=== PATIENT | male | born 1955 | race Caucasian/White ===

== ENCOUNTER 2018-03-11 08:53 | Day surgery (SDC) | payer OTHER ==
[2018-03-11] MEDS ORDERED: GLUCAGON 1 MG/VIAL IV ONE (08:54)
[2018-03-11] MEDS ORDERED: PROPOFOL 10 MG/ML VIAL IV ONE (08:54)
--- NOTE | 2018-03-11 15:20 | Operative Note ---
DATE OF SURGERY: 03/11/2018 OPERATION: COLONOSCOPY to the cecum with cold biopsy forceps polypectomy x2 and cold snare polypectomy x3. INDICATION: Colorectal cancer screening. ANESTHESIA: Intravenous sedation was administered by the department of anesthesiology and included Diprivan titrated to effect. PROCEDURE: Following informed consent from this alert individual including a discussion of the risks and benefits of the procedure and an opportunity for the patient to ask questions, the patient was in the left lateral decubitus position. A digital rectal examination was performed. No abnormalities were noted. Following this, the Olympus [id number] video colonoscope was inserted into the rectum without resistance. The rectal mucosa had a normal appearance with normal folds and distensibility. The colonoscope was advanced up through the colon to the level of the cecum without much difficulty. Throughout the bowel the mucosa appeared normal, the folds were normal, and the bowel was fairly well distensible. The colon preparation was good. The cecum was defined by noting the appendiceal orifice and ileocecal valve. In the cecum there were 2 polyps noted measuring 3 and 4 mm each. The larger polyp was removed with cold snare polypectomy and suctioned through the colonoscope into a collection trap. The smaller polyp was removed with biopsy forceps. The ascending colon was unremarkable. Within the transverse colon, there were 3 polyps noted, 2 measuring 4-5 mm in size and removed with cold snare polypectomy and 1 small 3 mm polyp was removed with biopsy forceps. No other changes were noted upon further withdrawal of the colonoscopy to the rectum. Retroflexion in the rectum was endoscopically unremarkable. The endoscope was straightened and withdrawn. The patient tolerated the procedure well and was returned to the recovery area in stable condition. IMPRESSION: A total of 5 polyp noted with 2 in the cecum and 3 in the transverse colon removed as described above. The largest polyp was 4-5 mm in size. RECOMMENDATIONS: Further recommendations will be forthcoming pending results of pathology obtained today. Followup will also be with Rafiq Bautista DO. As always, thank you for allowing me to participate in the care of your patient. CC: DO OSKAR Yost
== END 2018-03-11 10:45 | disposition home or self-care (01) ==
LOC: HOP 08:53
PROVIDERS: ATTEND Internal Medicine Gastroenterology
DX: Z12.11 Encounter for screening for malignant neoplasm of colon (principal); D12.0 Benign neoplasm of cecum; D12.3 Benign neoplasm of transverse colon; E11.9 Type 2 diabetes mellitus without complications; I10 Essential (primary) hypertension; J45.909 Unspecified asthma, uncomplicated
CPT/HCPCS: 45380; 45385; 00811; J1610

== ENCOUNTER 2018-05-27 07:11 | Day surgery (SDC) | payer OTHER ==
[~2018-05-27 07:11] MED LIST: ACETAMINOPHEN 1,000 MG/100 ML BTL IV ONE; CEFAZOLIN 2 Gram 2 GM/50 ML BAG IVPB ONE
[2018-05-27] MEDS ORDERED: LIDOCAINE 2% MDV (20MG/ML) 20ML VIAL IV ONE (07:12)
[2018-05-27] MEDS ORDERED: BUPIVACAINE 0.25% W/EPI MPF 30ML VIAL IVP ONE (07:12)
[2018-05-27] MEDS ORDERED: PROPOFOL 10 MG/ML VIAL IV ONE (07:12)
[2018-05-27] MEDS ORDERED: MIDAZOLAM HCL 2MG/2ML VIAL IV ONE (07:12)
[2018-05-27] MEDS ORDERED: FENTANYL PF 100MCG/2ML VIAL IV ONE (07:12)
[2018-05-27] MEDS ORDERED: DESFLURANE 240 ML BTL INH ONE (07:12)
[2018-05-27] MEDS ORDERED: ONDANSETRON HCL IV 4 MG/2 ML VIAL IVP ONE (07:12)
[2018-05-27 07:38] LABS: BASO % 0.8 % (0-6); EOS % 9.4 % (0-6); GRAN % 50.1 % (47-80); HEMATOCRIT 45.5 % (42.0-52.0); LYMPH % 29.4 % (16-45); MEAN CELL VOLUME 97.2 fl (81-97); MEAN CORPUSCULAR HEMOGLOBIN 32.1 pg (27-33); MEAN PLATELET VOLUME 10.3 fl (7.4-10.4); MONO % 10.3 % (0-9); PLATELET COUNT 233 K/uL (130-400); RED BLOOD COUNT 4.68 M/uL (4.40-5.70); RED CELL DISTRIBUTION WIDTH 13.4 % (11.5-14.5); WHITE BLOOD COUNT W/O DIFF 7.6 K/uL (4.2-12.2)
[2018-05-27 07:53] LABS: BLOOD UREA NITROGEN 22 mg/dL (8-23); CREATININE 1.1 mg/dL (0.7-1.2); EST GLOMERULAR FILTRATION RATE > 60 mL/min; GLUCOSE,RANDOM 122 mg/dL (74-109)
--- NOTE | 2018-05-28 10:40 | Operative Note ---
DATE OF SURGERY: 05/27/2018 Surgeon: Ciro Sahni DO PREOPERATIVE DIAGNOSIS: Recurrent incarcerated umbilical hernia. POSTOPERATIVE DIAGNOSIS: Recurrent incarcerated umbilical hernia. OPERATION: Open umbilical herniorrhaphy. Indication: The patient is a 62-year-old male who presented to the clinic with pain and bulging in his periumbilical region. He had undergone a prior open repair about 15 years ago. He said it recurred after his laparoscopic appendectomy. He did have a [id number] size incarcerated umbilical hernia. The risks, benefits, and alternatives were discussed. Risks include bleeding, infection, acute or chronic pain, recurrence. He understood this fully. Thereafter, consent was signed and questions answered. PROCEDURE: The patient was taken to the operating room and placed in a supine position. General anesthesia was administered per the department of anesthesia. The patient's abdomen was prepped and draped in the usual fashion. The periumbilical region was anesthetized with a total of 10 mL of 0.25% Sensorcaine with epinephrine. A 3 cm curvilinear incision was made. This was carried down to the anterior rectus fascia. Copious amounts of scarring were encountered from his prior repair. The umbilical skin was dissected free from underlying hernia sac and lifted in a cephalad direction. The patient had incarcerated omentum through a small probably 5 mm hernia. This was surrounded by copious amounts of scarring noted. The hernia sac was then amputated and passed off the field. The hernia was closed primarily with 0 Ethibond in 3 interrupted sutures. The skin was tacked down to the fascia with 3-0 Vicryl. The skin was closed with 3-0 and 4-0 Vicryl. He was taken to the recovery room in satisfactory condition. FINDINGS AT THE TIME OF SURGERY: Recurrent incarcerated umbilical hernia, repaired as above. CC: DO OSKAR Yost
== END 2018-05-27 09:55 | disposition home or self-care (01) ==
LOC: SUR 07:11
PROVIDERS: ATTEND Surgery
DX: K42.0 Umbilical hernia with obstruction, without gangrene (principal); J45.909 Unspecified asthma, uncomplicated; I10 Essential (primary) hypertension; E11.9 Type 2 diabetes mellitus without complications
CPT/HCPCS: 80048; 85025; 93005; J2405